=== PATIENT | female | born 1985 | race Caucasian/White ===

== ENCOUNTER 2022-01-07 09:32 | Outpatient (CLI) | payer OTHER, SELFPAY ==
--- NOTE | 2022-01-07 09:44 | CRLHL7_ITS ---
For Patients: As a result of the Century Cures Act, medical imaging exams and procedure reports are released immediately into your electronic medical record. You may view this report before your referring provider. If you have questions, please contact your health care provider. INDICATION: frequent menstruation, check IUD and endometrium COMPARISON: none TECHNIQUE: 2D farnsworth scale and color Doppler images were acquired of the pelvis using a transabdominal and transvaginal approach. FINDINGS: Sonographic images demonstrate a normal size and smooth outer contour of the uterus. Uterus measures 10.0 cm in length by 4.7 cm in AP diameter by 5.7 cm in transverse dimension. The myometrium has a normal uniform echotexture. IUD is located within the endometrial canal. A trace amount of endometrial fluid is noted. The endometrial thickness is 3 millimeters. The right ovary measures 4.0 x 2.5 x 3.0 cm in size and the left ovary measures 3.4 x 1.2 x 2.4 cm. The ovaries demonstrate normal arterial and venous blood flow on color Doppler analysis. There are no suspicious fluid collections within the cul-de-sac. IMPRESSION: Intrauterine device is present within the endometrial canal. The endometrial thickness is 3 millimeters. Dictated by Justus Arriaga MD @ 01/07/2022 12:43:07 PM (Electronically Signed)
== END 2022-01-07 09:33 | disposition home or self-care (01) ==
LOC: US 09:33
PROVIDERS: Visit Provider Obstetrics & Gynecology
DX: N92.6 Irregular menstruation, unspecified (principal); R93.89 Abnormal findings on diagnostic imaging of other specified body structures
CPT/HCPCS: 76830; 76856

== ENCOUNTER 2022-01-13 14:08 | Outpatient (CLI) | payer OTHER, SELFPAY | END 2022-01-13 14:09 | disposition home or self-care (01) | PROVIDERS: Visit Provider Obstetrics & Gynecology | DX: N93.9 Abnormal uterine and vaginal bleeding, unspecified (principal) | CPT/HCPCS: 84443 ==

== ENCOUNTER 2023-06-08 11:16 | Outpatient (CLI) | payer OTHER, SELFPAY | END 2023-06-08 11:17 | disposition home or self-care (01) | PROVIDERS: Visit Provider Obstetrics & Gynecology | DX: Z00.00 Encounter for general adult medical examination without abnormal findings (principal); N64.4 Mastodynia | CPT/HCPCS: 80061 ==

== ENCOUNTER 2023-07-08 08:33 | Outpatient (CLI) | payer OTHER, SELFPAY ==
--- NOTE | 2023-07-08 08:45 | MM_ITS ---
Patient: CHE AN Facility:?[facility] RIS Patient ID:?[id number] Site Patient ID:?[id number] Site :?1985 Study:?XRay-Breast Bilateral 3D W/CAD-07/08/2023 9:47:32 AM Ordering Physician:Desiree Final Report: BILATERAL DIAGNOSTIC MAMMOGRAM WITH COMPUTER-AIDED DETECTION AND TOMOSYNTHESIS WITH IMPLANT DISPLACEMENT, 07/08/2023 CLINICAL HISTORY: LEFT breast pain. COMPARISON: None. TECHNIQUE: Digital BILATERAL mammogram in 4 projections. CC and MLO views were obtained. These mammographic images have been obtained using full-field digital technique. These mammographic images were interpreted with the benefit of computer-aided detection. Breast Tomosynthesis was used in this interpretation. Real-time ultrasound imaging of LEFT breast with imaging documentation. BREAST COMPOSITION: Extremely dense. FINDINGS: BILATERAL mammogram images demonstrate intact implants. No suspicious masses or architectural distortion. No suspicious calcifications or adenopathy. Targeted LEFT breast ultrasound performed in the outer aspect of the breast extending into the LEFT axilla. No suspicious findings. No adenopathy or mass. IMPRESSION: No evidence of malignancy. RECOMMENDATIONS: Age-appropriate screening mammography. Patient will discuss possible high-risk screening options with the Breast Biotech Production Specialist. BI-RADS Category 2: Benign A lay language report of this examination will be provided to the patient. Dictated by Justus Arriaga MD @ 07/08/2023 9:50:48 AM TALHA/kecia DW/Dictated by: Justus Arriaga MD @ 07/08/2023 9:50:00 AM Signed by:?Justus Arriaga MD @07/08/2023 2:34:23 PM (Electronic Signature)
--- NOTE | 2023-07-08 09:15 | US_ITS ---
Patient: CHE AN Facility:?[facility] RIS Patient ID:?[id number] Site Patient ID:?[id number]. Site :?1985 Study:?US-Breast Left DR IRIZARRY TO READ-07/08/2023 9:39:16 AM Ordering Physician:?SANDRA GUZMÁN Final Report: PLEASE SEE BILATERAL BREAST DIAGNOSTIC MAMMOGRAM OF SAME DAY. CRL:perry DHEERAJ/Dictated by: Justus Irizarry MD @ 07/08/2023 9:50:00 AM DHEERAJ/Dictated by: Justus Irizarry MD @ 07/08/2023 9:50:00 AM Signed by:?Justus Irizarry MD @07/08/2023 6:03:06 PM (Electronic Signature)
== END 2023-07-08 08:34 | disposition home or self-care (01) ==
LOC: MAMMO 08:34
PROVIDERS: Visit Provider Obstetrics & Gynecology
DX: N64.4 Mastodynia (principal)
CPT/HCPCS: 76642; 77066; G0279

== ENCOUNTER 2023-09-22 14:07 | Outpatient (CLI) | payer OTHER, SELFPAY ==
--- OUTSIDE RECORDS SUMMARY | 2023-09-22 14:12 | XMS_ITS | Continuity of Care Document ---
Author Organization [facility] er Address [address] [place] [address] Care Team Providers Care Salt Maker Name Role Phone Nerissa Bassett APRN Primary Care Provider Encounters Date Type Department Care Team Description 05/03/2023 9:20 AM POWERHOUSE ELECTRICIAN Office Visit [address] [address] Nerissa Bassett APRN Irritation of left eye (Primary Dx) 07/27/[address] [address] Yuliana Degroot MD eye infection 03/30/[address] [address] Yuliana Degroot MD 03/30/2022 9:30 AM POWERHOUSE ELECTRICIAN Lab [address] [address] Screening for deficiency anemia 03/26/2022 3:20 PM POWERHOUSE ELECTRICIAN Office Visit [address] [address] Yuliana Degroot MD Lymph node enlargement (Primary Dx); Screening for deficiency anemia 02/05/2022 11:20 AM CDT Office Visit [address] [address] Yuliana Degroot MD Swelling of lymph node (Primary Dx); Facial infection 01/12/2022 Orders Only [place] [address] Yuliana Degroot MD Skin infection (Primary Dx) 01/11/2022 Telephone [place] [address] [facility] [address] [place] [address] Yuliana Degroot MD med refill 11/06/2021 11:20 AM CDT Office Visit [place] [address] [facility] [address] [place] [address] Yuliana Degroot MD Hordeolum externum of left upper eyelid (Primary Dx) 05/14/2021 Telephone [place] [address] [facility] [address] [place] [address] Yuliana Degroot MD med refill 02/12/2021 10:00 AM CDT Immunization [place] [address] [facility] [address] [place] [address] 01/19/2021 Telephone [place] [address] [facility] [address] [place] [address] Yuliana Degroot MD 11/21/2020 Telephone [place] [address] [facility] [address] [place] [address] Yuliana Degroot MD requesting Rx 11/30/2018 Orders Only [address] [place] [address] Yuliana Degroot MD Skin infection (Primary Dx) Allergies No known active allergies Medications No known medications Active Problems Problem Noted Date Diagnosed Date Irritation of left eye 05/03/2023 Last Assessment & Plan: Start Ciprofloxacin 1 drop 4 times a day for 7 days If symptoms do not improve in the next 1-2 days or get worse, please see Felt Hat Flanging Operator Immunizations Name Administration Dates Next Due COVID-19, mRNA, LNP-S, PF, 30mcg/0.3mL dose Pfizer 02/10/2021,01/20/2021 Hepatitis B 08/13/1999,05/22/1999,03/12/1999 Influenza (IM) Preservative Free 01/26/2013 Influenza 6mo-64yrs Quad Pre servative Free IM 02/12/2021,02/27/2020,01/31/2019,2016 TD Preservative Free 03/25/1997 Tdap 08/13/2019,12/13/2016,04/27/2013 Family History Medical History Relation Comments No Known Problems Brother No Known Problems Daughter 1 No Known Problems Daughter 2 No Known Problems Daughter 3 Diabetes Father Diabetes Mother Sjogren's syndrome Sister No Known Problems Son Relation Status Comments Brother Alive Daughter 1 Alive Daughter 2 Alive Daughter 3 Alive Father Alive Mother Alive Sister Alive Son Alive Social History Smoking Status as of 09/22/2023 Tobacco Use Types Packs/Day Years Used Date Smoking Tobacco: Never Assessed Humiliation, Afraid, Rape, and Kick questionnair e Answer Date Recorded Within the last year, have y ou been afraid of your partner or ex-partner? No 05/03/2023 Within the last year, have y ou been humiliated or emotionally abused in other ways by your partner or ex-partner? No Within the last year, have y ou been kicked, hit, slapped, or otherwise physically hurt by your partner or ex-partner? No 05/03/2023 Within the last year, have y ou been raped or forced to have any kind of sexual activity by your partner or ex-partner? No 05/03/2023 Social Connection and Isolat ion Panel [NHANES] Answer Date Recorded In a typical week, how many times do you talk on the phone with family, friends, or neighbors? More than three times a week 05/03/2023 How often do you get togethe r with friends or relatives? Once a week 05/03/2023 How often do you attend chur or jehovah's witness services? Patient declined 05/03/2023 Do you belong to any clubs o r organizations such as evangelical groups, unions, fraternal or athletic groups, or school groups? Yes 05/03/2023 How often do you attend meet ings of the clubs or organizations you belong to? More than 4 times per year 05/03/2023 Are you , , di vorced, , never , or living with a partner? 05/03/2023 AUDIT-C Answer Date Recorded Q1: How often do you have a drink containing alcohol? Never 05/03/2023 Q2: How many drinks containi ng alcohol do you have on a typical day when you are drinking? Patient does not drink Q3: How often do you have si x or more drinks on one occasion? Never 05/03/2023 Overall Financial Resource Strain (CARDIA) Answe r Date Recorded How hard is it for you to pa y for the very basics like food, housing, medical care, and heating? Not hard at all 05/03/2023 PHQ-2 Answer Date Recorded PHQ-9 Total Score 0 05/03/2023 [facility] - Occupational Stress Questionnaire Answer Date Recorded Do you feel stress - tense, restless, nervous, or anxious, or unable to sleep at night because your mind is troubled all the time - these days? Only a little 05/03/2023 Exercise Vital Sign Answer Date Recorde d On average, how many days pe r week do you engage in moderate to strenuous exercise (like a brisk walk)? 3 days 05/03/2023 On average, how many minutes do you engage in exercise at this level? 30 min 05/03/2023 Hunger Vital Sign Answer Date Recorded Within the past 12 months, y ou worried that your food would run out before you got the money to buy more. Never true 05/03/19 24 Within the past 12 months, t he food you bought just didn't last and you didn't have money to get more. Never true 05/03/2023 PRAPARE - Transportation Answer Date Re corded In the past 12 months, has l ack of transportation kept you from medical appointments or from getting medications? No 12/2023 In the past 12 months, has l ack of transportation kept you from meetings, work, or from getting things needed for daily living? No 05/03/2023 Housing Stability Vital Sign Answer Milad e Recorded In the last 12 months, was t here a time when you were not able to pay the mortgage or rent on time? No 05/03/2023 In the last 12 months, how many places have you lived? 1 05/03/2023 In the last 12 months, was t here a time when you did not have a steady place to sleep or slept in a fpc (including now)? No 05/03/2023 Sex and Gender Information Value Date Recorded Sex Assigned at Not on file Gender Identity Not on file Sexual Orientation Not on file Last Filed Vital Signs Vital Sign Reading Time Taken Comments Blood Pressure 115/65 05/03/2023 9:30 AM POWERHOUSE ELECTRICIAN Pulse 83 05/03/2023 9:30 AM POWERHOUSE ELECTRICIAN Temperature 36.3 ??C (97.4 ??F) 05/03/2023 9:30 AM CS T Respiratory Rate 16 05/03/2023 9:30 AM POWERHOUSE ELECTRICIAN Oxygen Saturation 97% 05/03/2023 9:30 AM POWERHOUSE ELECTRICIAN Inhaled Oxygen Concentration - - Weight 51.7 kg (113 lb 14.4 oz) 05/03/2023 9:30 AM POWERHOUSE ELECTRICIAN Height 174 cm (5' 8.5) 05/03/2023 9:30 AM POWERHOUSE ELECTRICIAN Body Mass Index 17.06 05/03/2023 9:30 AM POWERHOUSE ELECTRICIAN Plan of Treatment Not on file Procedures Procedure Name Priority Date/Time Associated Diagnosis Comments CBC BRANCH OFFICE W/DIFF Routine 03/30/2022 9:35 AM POWERHOUSE ELECTRICIAN Screening for deficiency anemia LIPID PANEL Routine 08/22/2014 8:42 AM CDT PAP TEST Routine 08/21/2014 4:05 PM CDT HPV HIGH RISK DNA DETECTION WITH GENOTYPING Routine 08/21/2014 3:45 PM CDT Results * CBC Branch Off w/Diff (03/30/2022 9:35 AM POWERHOUSE ELECTRICIAN) WBC 8.7 3.5 - 10.5 K/uL 03/30/2022 9:41 AM POWERHOUSE ELECTRICIAN [facility] RBC 4.96 3.90 - 5.00 M/uL 03/30/2022 9:41 AM POWERHOUSE ELECTRICIAN [facility] Hemoglobin 14.3 12.0 - 15.5 g/dL 03/30/2022 9:41 AM POWERHOUSE ELECTRICIAN [facility] Hematocrit 43.8 35.0 - 44.0 % 03/30/2022 9:41 AM POWERHOUSE ELECTRICIAN [facility] Platelets 213 150 - 450 K/uL 03/30/2022 9:41 AM POWERHOUSE ELECTRICIAN [facility] MCV 88.3 81.6 - 98.3 fL 03/30/2022 9:41 AM POWERHOUSE ELECTRICIAN [facility] MCH 28.8 26.0 - 32.0 pg 03/30/2022 9:41 AM POWERHOUSE ELECTRICIAN [facility] MCHC 32.6 32.0 - 36.0 g/dL 03/30/2022 9:41 AM POWERHOUSE ELECTRICIAN [facility] RDW 12.5 11.9 - 15.5 % 03/30/2022 9:41 AM POWERHOUSE ELECTRICIAN [facility] Lymphocytes % 12.6 % 03/30/2022 9:41 AM POWERHOUSE ELECTRICIAN [facility] Mid-size Cells 9.7 % 03/30/2022 9:41 AM POWERHOUSE ELECTRICIAN [facility] Granulocytes/Konrad trophils 77.7 % 03/30/2022 9:41 AM POWERHOUSE ELECTRICIAN [facility] Lymphocytes Absolute 1.1 0.9 - 2.9 K/uL 03/30/2022 9:41 AM POWERHOUSE ELECTRICIAN [facility] MIDS Absolute 0.8 0.4 - 1.5 K/uL 03/30/2022 9:41 AM POWERHOUSE ELECTRICIAN [facility] Granulocytes/Konrad trophils Absolute 6.8 1.7 - 7.0 K/uL 03/30/2022 9:41 AM POWERHOUSE ELECTRICIAN [facility] Blood (Blood, Venous) 03/30/2022 9:35 AM POWERHOUSE ELECTRICIAN 03/30/2022 9:35 AM POWERHOUSE ELECTRICIAN Yuliana Degroot MD LAB BLOOD ORDERABLES [facility] [place] [address] [place] [address] * (ABNORMAL) Lipid panel (08/22/2014 8:42 AM CDT) [facility] Cholesterol 180 0 - 199 mg/dL 08/22/2014 1:47 PM CDT [facility] Comment: Recommended by National Cholesterol Education Program (ATP III) Cholesterol Ranges <200 ? Desirable 200-239 ? Borderline high >=240 ? High Triglycerides 57 0 - 149 mg/dL 08/22/2014 1:47 PM CDT [facility] Comment: TRIG Ranges <150 ?Normal 150-199 ? Borderline high 200-499 ? High >=500 ? Very high HDL 68 40 - 60 mg/dL 08/22/2014 1:48 PM CDT [facility] Comment: HDL Ranges <40 ?Low 40-59 ?Normal >=60 ? Optimal LDL Calculated 101(A) 0 - 99 mg/dL 08/22/2014 1:48 PM CDT [facility] Comment: LDL Ranges <100 ? Optimal 100-129 ?Near optimal/above optimal 130-159 ?Borderline high 160-189 ?High >=190 ?Very high Fasting? Yes 08/22/2014 8:43 AM CDT [facility] 08/22/2014 8:42 AM CDT 08/22/2014 1:03 PM CDT Jade Davis LAB BLOOD ORDERABLES [facility] [address] [place] [address] * Pap Smear (08/21/2014 4:05 PM CDT) [facility] Pap Test [facility] Comment: ? [facility] ? [address] ?[place] [address] ? Patient: ? KATI AN ? Procedure: ??08/21/2014 16:05 /Age/Sex ??1985, 29 Y, F ? Received: ?? 08/22/2014 15:17 : ?Accession ?? [id number] ? #: Billing: ? [id number] ?Patient [facility]: [facility] Ordered by: ??JADE DAVIS MD ? Attending: ??JADE DAVIS MD ? AVIONICS ELECTRICAL ENGINEER CYTOLOGY FINAL REPORT SPECIMEN: (A) SURE PATH PAP, SCREEN SPECIMEN DESCRIPTION: Cervical/Endocervical Received cloudy specimen in [facility] vial. CLINICAL INFORMATION: LMP: 08/05/2014 ?? Prev.normal: 2008 SPECIMEN ADEQUACY: Satisfactory for Evaluation. ??Endocervical cells/transformation zone component present. GENERAL CATEGORIZATION: Negative for Intraepithelial Lesion or Malignancy INTERPRETATION/RESULTS: Inflammation present PAP Test Disclaimer Cervical cytology is a screening test primarily for squamous cancer and its precursors and has associated false-negative and false-positive results. Regular sampling and follow-up of unexplained clinical signs and symptoms are recommended to minimize the impact of false negative and false positive results. Screened By: Signed By: PAYAL CASTELLANOS (ASCP) <Sign Out Dr. Zapata> Reported: ??08/27/2014 ? Page 1 of 1 [facility] PAP, screen 08/21/2014 4:05 PM CDT 08/22/2014 3:17 PM CDT Jade Davis LAB CYTOLOGY ORDERAB LES [facility] [address] [place] [id number] * HPV High Risk DNA Detection with Genotyping (08/21/2014 3:45 PM CDT) Source Cx/Endocerv ix 08/26/2014 2:29 PM CDT [facility] HPV Type 16 Negative Negative 08/26/2014 2:29 PM CDT [facility] HPV Type 18 Negative Negative 08/26/2014 2:29 PM CDT [facility] HPV non-Type 16 or 18 Negative Negative 08/26/2014 2:29 PM CDT [facility] Comment: The following Other High Risk HPV types were not detected: 31, 33, 35, 39, 45, 51, 52, 56, 58, 59, 66, and 68 Test Performed by: [facility] [address] [place] [address] House Officer: Handy Hernandez II, M.D., Ph.D. 08/21/2014 3:45 PM CDT 08/22/2014 1:51 PM CDT Jade Susan LAB CYTOLOGY ORDERAB LES [facility] [address] [place] [address] [facility] see result attachment for specific address Visit Diagnoses Diagnosis Start Date Skin infection Unspecified local infection of skin and subcutaneous tissue 11/30/2018 Skin infection Unspecified local infection of skin and subcutaneous tissue 11/21/2020 Skin infection Unspecified local infection of skin and subcutaneous tissue 01/19/2021 Skin infection Unspecified local infection of skin and subcutaneous tissue 05/14/2021 Hordeolum externum of left upper eyelid 11/06/2021 Skin infection Unspecified local infection of skin and subcutaneous tissue 01/12/2022 Swelling of lymph node Enlargement of lymph nodes 02/05/2022 Facial infection Unspecified infectious and parasitic diseases 02/05/2022 Lymph node enlargement Enlargement of lymph nodes 03/26/2022 Screening for deficiency anemia Screening for other and unspecified deficiency anemia 03/26/2022 Screening for deficiency anemia Screening for other and unspecified deficiency anemia 03/30/2022 Skin infection Unspecified local infection of skin and subcutaneous tissue 07/27/2022 Irritation of left eye 05/03/2023 Care Teams Salt Maker Relationship Specialty Start Date End Date Nerissa Bassett, RETAIL OFFICE ASSOCIATE [address] [place] [address] PCP - General 02/10/23
--- NOTE | 2023-09-22 14:30 | CRLHL7_ITS ---
For Patients: As a result of the Century Cures Act, medical imaging exams and procedure reports are released immediately into your electronic medical record. You may view this report before your referring provider. If you have questions, please contact your health care provider. BILATERAL BREAST MRI WITHOUT AND WITH GADOLINIUM CLINICAL HISTORY: 38-year-old female with elevated risk of breast cancer due to strong family history. INDICATION FOR BREAST MRI: Screening breast MRI in this high-risk woman. COMPARISON STUDIES: Mammogram 07/08/2023. CONTRAST: 15 cc of Dotarem. TECHNIQUE: The patient was positioned prone using a breast coil. Multiple imaging sequences were obtained using 1-1.5 mm thick slices with no gap. The image sequences include T2-weighted STIR in the axial plane, T1-weighted nonfat-saturated gradient echo in the axial plane, pre- and post-contrast T1-weighted FLASH 3D with fat suppression in the axial plane, and T1-weighted FLASH high resolution 3D with fat suppression in the sagittal plane. Image post-processing was performed on a [employer] workstation. Complex 3D rendering including maximum intensity projections (MIPS) and volumetric renderings were obtained to optimize visualization of the extent of pathology and relationship to the nipple, skin, and chest wall. This aids in determining feasibility of breast conservation surgery. Subtraction, multiplanar reconstruction, mean curve determination, and angiogenesis mapping were also performed. The study was technically adequate. FINDINGS: Amount of Fibroglandular Tissue: Heterogenous fibroglandular tissue. Breast Background Enhancement: Mild. RIGHT Breast: There is a subpectoral silicone implant in place. No suspicious areas of enhancement. LEFT Breast: There is a subpectoral silicone implant in place. No suspicious areas of enhancement. Lymph Nodes: No adenopathy. IMPRESSIONS AND RECOMMENDATIONS: Benign, there is no evidence of malignancy. Continue annual screening mammography and as clinically indicated screening breast MRI. The mammogram and MRI should be offset by 6 months interval of time. BI-RADS Category 2: Benign Dictated by Denise Charles MD @ 09/23/2023 12:10:55 PM tori/Dictated by: Denise Charles MD @ 09/23/2023 12:11:00 PM (Electronically Signed)
== END 2023-09-22 14:08 | disposition home or self-care (01) ==
LOC: MRI 14:09
PROVIDERS: Visit Provider Surgery
DX: Z12.39 Encounter for other screening for malignant neoplasm of breast (principal); Z80.3 Family history of malignant neoplasm of breast
CPT/HCPCS: 77049; C8908; C8937; A9575

== ENCOUNTER 2024-08-23 12:56 | Outpatient (CLI) | payer OTHER, SELFPAY ==
--- NOTE | 2024-08-23 13:00 | CRLHL7_ITS ---
For Patients: As a result of the Century Cures Act, medical imaging exams and procedure reports are released immediately into your electronic medical record. You may view this report before your referring provider. If you have questions, please contact your health care provider. INDICATION: BILATERAL SCREENING MAMMOGRAM, ASYMPTOMATIC 39 Y/O FEMALE COMPARISON: 07/08/23 TECHNIQUE: CC and MLO views were obtained. These mammographic images have been obtained using full-field digital technique. These mammographic images were interpreted with the benefit of computer aided detection and tomosynthesis. BREAST COMPOSITION: The breasts are extremely dense, which lowers the sensitivity of mammography. FINDINGS: No suspicious findings. ASSESSMENT: BI-RADS 2 Benign RECOMMENDATION: Annual screening mammogram. A lay language report of this examination will be provided to the patient. Dictated by: Justus Arriaga MD @ 08/30/2024 13:06:06 (Electronically Signed)
== END 2024-08-23 12:57 | disposition home or self-care (01) ==
LOC: MAMMO 12:57
PROVIDERS: Visit Provider Surgery
DX: Z12.31 Encounter for screening mammogram for malignant neoplasm of breast (principal); R92.343 Mammographic extreme density, bilateral breasts; Z80.3 Family history of malignant neoplasm of breast; Z98.82 Breast implant status
CPT/HCPCS: 77063; 77067

== ENCOUNTER 2025-03-07 08:24 | Outpatient (CLI) | payer OTHER, SELFPAY ==
--- NOTE | 2025-03-07 08:45 | CRLHL7_ITS ---
For Patients: As a result of the 21st Century Cures Act, medical imaging exams and procedure reports are released immediately into your electronic medical record. You may view this report before your referring provider. If you have questions, please contact your health care provider. BILATERAL BREAST MRI WITHOUT AND WITH GADOLINIUM CLINICAL HISTORY: 39-year-old female with elevated risk of breast cancer due to family history. INDICATION FOR BREAST MRI: Screening breast MRI in this high-risk woman. COMPARISON STUDIES: Mammogram 08/23/2024, breast MRI 09/22/2023. CONTRAST: 11 mL Dotarem IV. TECHNIQUE: The patient was positioned prone using a breast coil. Multiple imaging sequences were obtained using 1-1.5 mm thick slices with no gap. The image sequences include T2-weighted STIR in the axial plane, T1-weighted nonfat-saturated gradient echo in the axial plane, pre- and post-contrast T1-weighted FLASH 3D with fat suppression in the axial plane, and T1-weighted FLASH high resolution 3D with fat suppression in the sagittal plane. Image post-processing was performed on a [employer] workstation. Complex 3D rendering including maximum intensity projections (MIPS) and volumetric renderings were obtained to optimize visualization of the extent of pathology and relationship to the nipple, skin, and chest wall. This aids in determining feasibility of breast conservation surgery. Subtraction, multiplanar reconstruction, mean curve determination, and angiogenesis mapping were also performed. The study is somewhat limited due to patient motion. FINDINGS: Amount of Fibroglandular Tissue: Scattered fibroglandular tissue. Breast Background Enhancement: Mild. RIGHT Breast: There are no suspicious areas of enhancement. Subpectoral implants are in place. LEFT Breast: There are no suspicious areas of enhancement. Subpectoral implants are in place. Lymph Nodes: No adenopathy. IMPRESSIONS AND RECOMMENDATIONS: Evaluation is somewhat limited due to motion. No MRI evidence of malignancy within the limits of this exam. Recommend continued annual screening mammography and as clinically indicated screening breast MRI. The mammogram and MRI should be offset by six-month intervals of time. BI-RADS Category 2: Benign Dictated by Denise Charles MD @ 03/08/2025 1:26:23 PM jj/Dictated by: Denise Charles MD @ 03/08/2025 1:26:00 PM (Electronically Signed)
== END 2025-03-07 08:25 | disposition home or self-care (01) ==
LOC: MRI 08:26
PROVIDERS: Visit Provider Surgery
DX: Z12.39 Encounter for other screening for malignant neoplasm of breast (principal); Z80.3 Family history of malignant neoplasm of breast
CPT/HCPCS: 77049; A9575